=== PATIENT | male | born 1995 | race Caucasian/White ===

== ENCOUNTER 2017-10-24 01:20 | Emergency (ER) | payer OTHER ==
[~2017-10-24] VITALS: Ht 167.6 cm; Wt 77.0 kg
[2017-10-24] MEDS ORDERED: SODIUM CHLORIDE 0.9% 1,000 ML IV ONE ×2 (02:22→04:41)
[2017-10-24 02:54] LABS: HEMATOCRIT 47.2 % (42.0-52.0); HEMOGLOBIN 16.4 g/dL (14.0-18.0); MEAN CORPUSCULAR HEMOGLOBIN 31.4 pg (28.0-32.0); MEAN CORPUSCULAR VOLUME 90.3 fL (80.0-94.0); RED BLOOD CELL COUNT 5.23 mill/uL (4.7-6.1); RED CELL DISTRIBUTION WIDTH 12.9 % (11.6-14.6)
[2017-10-24 02:59] LABS: CHLORIDE 106 mEq/L (98-107)
[2017-10-24 03:09] LABS: CARBON DIOXIDE 28 mEq/L (21-32); ETHANOL BLOOD 297 mg/dL
[2017-10-24 03:24] LABS: PLATELET 219 x1000/uL (130-400)
[2017-10-24 04:30] VITALS: BP 119/80
== END 2017-10-24 06:11 | disposition home or self-care (01) ==
LOC: ER 01:20
DX: F10.129 Alcohol abuse with intoxication, unspecified (principal); F12.10 Cannabis abuse, uncomplicated; Y90.8 Blood alcohol level of 240 mg/100 ml or more
CPT/HCPCS: 36415; 80048; 85027; 96360; 96361; 99284; G0482; J7030